=== PATIENT | female | born 1990 | race Caucasian/White ===

== ENCOUNTER 2024-07-15 12:27 | Outpatient (CLI) | payer MEDICAID, SELFPAY ==
[2024-07-15 12:54] VITALS: BP 145/90; PULSE 82
[2024-07-15 13:04] VITALS: BP 148/96; PULSE 87
[2024-07-15 13:24] VITALS: BP 148/96; PULSE 87; TEMP 36.6
[2024-07-15 13:36] VITALS: BP 146/90; PULSE 83
[2024-07-15 14:05] LABS: Abs Immature Grans 0.17 10^3/uL (0.0-0.06); Absolute Basophil Count 0.12 10^3/uL (0.0-0.2); Absolute Eosinophil Count 0.05 10^3/uL (0.0-0.7); Absolute Monocyte Count 0.78 10^3/uL (0.1-0.8); Basophils % 0.9 %; Eosinophils % 0.4 %; HCT 38.2 % (36.0-46.0); Immature Grans % 1.3 %; Lymphocytes % 12.1 %; MCH 29.5 pg (27.0-33.0); MCV 87 fL (80-95); Neutrophils % 79.3 %; Platelet Count 256 10^3/uL (130-400); RBC 4.41 10^6/uL (3.93-5.22); RDW 14.6 % (11.7-14.6); WBC 13.01 10^3/uL (4.4-10.8)
[2024-07-15 14:06] LABS: Absolute Lymphocyte Count 1.57 10^3/uL (1.2-3.4); Absolute Neutrophil Count 10.32 10^3/uL (1.2-6.7)
[2024-07-15 14:26] LABS: ALT 34 U/L (14-59); AST 36 U/L (15-37); Albumin 2.8 g/dL (3.4-5.0); Alkaline Phosphatase 210 U/L (46-116); Anion Gap 10.1 mmol/L (3-11); BUN 16 mg/dL (7-18); Bilirubin, Total 0.26 mg/dL (0.2-1.0); CO2 21.9 mmol/L (21.0-32.0); CREATININE 0.8 mg/dL (0.55-1.02); Calcium 9.7 mg/dL (8.5-10.1); Chloride 106 mmol/L (98-107); Estimated GFR 99.71 (mL/min/1.73m2); Glucose 84 mg/dL (74-106); Potassium 4.1 mmol/L (3.5-5.1); Sodium 138 mmol/L (136-145); Total Protein 7.2 g/dL (6.4-8.2)
[2024-07-15 14:45] VITALS: BP 133/81; PULSE 89
--- NOTE | 2024-07-16 08:07 | W.OBNST ---
Date of service: 07/16/24 Time of Service: 08:07 NST Evaluation Reason for NST Reasons for Nonstress Test: GESTATIONAL HYPERTENSION Gestational Age Gestational Age in Weeks and Days: 36 Weeks and 4Days Test and Monitor Explained Test/Monitor Explained: Test Explained, Monitor Explained and Patient Verbalized Understanding Vital Signs Blood Pressure: 148/96 Pulse: 87 Temperature: 97.9 F Urine Results Urine Protein: Negative Urine Ketones: Negative Urine Glucose: Negative Urine Blood: Negative NST Information Date on Monitor: 07/15/24 Time on Monitor: 12:42 Date off Monitor: 07/15/24 Time off Monitor: 13:12 Total Time on Monitor: 30 NST Interventions: Notify Provider Contraction Frequency: Occasional NST Evaluation Patient States Movement: Present FHR Baseline: 135 Variability: Moderate 6-25 bpm Accelerations: 15x15 Decelerations: None NST Results: Reactive Note Ultrasound Done: N/A. NST Note Note: Category 1, reactive NST NST Reviewed and Verified by: Gladys Choi
[2024-07-16 08:08] VITALS: BP 148/96; PULSE 87; TEMP 36.6
== END 2024-07-15 15:45 | disposition home or self-care (01) ==
LOC: BCD 12:37 → OBS 12:37
PROVIDERS: Obstetrics & Gynecology; Visit Provider Obstetrics & Gynecology Gynecology
DX: O13.3 Gestational [pregnancy-induced] hypertension without significant proteinuria, third trimester (principal); Z3A.36 36 weeks gestation of pregnancy
CPT/HCPCS: 59025; 80053; 86850; 86900; 86901; 85025; 87081

== ENCOUNTER 2024-07-17 07:29 | Outpatient (CLI) | payer MEDICAID, SELFPAY ==
[2024-07-17 10:13] VITALS: BP 127/92; PULSE 94; TEMP 36.5
[2024-07-17 10:22] VITALS: BP 127/92; PULSE 94
[2024-07-17 11:00] LABS: Abs Immature Grans 0.23 10^3/uL (0.0-0.06); Absolute Basophil Count 0.06 10^3/uL (0.0-0.2); Absolute Eosinophil Count 0.05 10^3/uL (0.0-0.7); Absolute Monocyte Count 0.77 10^3/uL (0.1-0.8); Basophils % 0.5 %; Eosinophils % 0.4 %; HCT 33.7 % (36.0-46.0); Lymphocytes % 11.7 %; MCH 30.5 pg (27.0-33.0); MCHC 35.6 % (32.0-36.0); MCV 86 fL (80-95); MPV 11.1 fL (8.0-11.0); Monocytes % 6.8 %; Neutrophils % 78.6 %; Platelet Count 245 10^3/uL (130-400); RBC 3.94 10^6/uL (3.93-5.22); RDW 14.6 % (11.7-14.6); RDW-SD 45.1 fL; WBC 11.32 10^3/uL (4.4-10.8)
[2024-07-17 11:02] LABS: Absolute Lymphocyte Count 1.32 10^3/uL (1.2-3.4)
[2024-07-17 11:06] VITALS: BP 123/85; PULSE 97
[2024-07-17 11:16] LABS: ALT 33 U/L (14-59); AST 31 U/L (15-37); Albumin 2.5 g/dL (3.4-5.0); Alkaline Phosphatase 199 U/L (46-116); Anion Gap 13.7 mmol/L (3-11); BUN 18 mg/dL (7-18); Bilirubin, Total 0.19 mg/dL (0.2-1.0); CO2 20.3 mmol/L (21.0-32.0); CREATININE 0.9 mg/dL (0.55-1.02); Calcium 9.2 mg/dL (8.5-10.1); Chloride 105 mmol/L (98-107); Estimated GFR 86.57 (mL/min/1.73m2); Glucose 117 mg/dL (74-106); Potassium 3.9 mmol/L (3.5-5.1); Sodium 139 mmol/L (136-145); Total Protein 6.5 g/dL (6.4-8.2)
[2024-07-17 19:10] LABS: PROTEIN 23.4 mg/dL (0.0-11.9)
[2024-07-17 19:14] LABS: TOTAL PROTEIN,URINE TIMED 374.4 mg/24hr (0.0-149.1); Total Volume 1600 ml
--- NOTE | 2024-08-26 10:50 | W.OBNST ---
Date of service: 08/26/24 Time of Service: 10:50 NST Evaluation Reason for NST Reasons for Nonstress Test: GESTATIONAL HYPERTENSION Gestational Age Gestational Age in Weeks and Days: 37 Weeks and 2Days Test and Monitor Explained Test/Monitor Explained: Test Explained, Monitor Explained and Patient Verbalized Understanding Vital Signs Blood Pressure: 127/92 Pulse: 94 Temperature: 97.7 F Urine Results Urine Protein: Negative Urine Ketones: Negative Urine Glucose: Negative Urine Blood: Negative NST Information Date on Monitor: 07/17/24 Time on Monitor: 10:10 Date off Monitor: 07/17/24 Time off Monitor: 11:32 Total Time on Monitor: 82 NST Interventions: PO Hydration and Notify Provider Contraction Frequency: Occasional NST Evaluation Patient States Movement: Present FHR Baseline: 140 Variability: Moderate 6-25 bpm Accelerations: 15x15 Decelerations: None NST Results: Reactive Note Ultrasound Done: N/A. NST Note Note: Reactive NST. BP stable. Pt will continue routine surveillence NST Reviewed and Verified by: Selma Nix
[2024-08-26 10:51] VITALS: BP 127/92; PULSE 94; TEMP 36.5
== END 2024-07-17 11:45 ==
LOC: BCD 07:30 → OBS 08:56
PROVIDERS: Obstetrics & Gynecology; Visit Provider Obstetrics & Gynecology Gynecology
DX: O13.3 Gestational [pregnancy-induced] hypertension without significant proteinuria, third trimester (principal); Z3A.37 37 weeks gestation of pregnancy
CPT/HCPCS: 59025; 36415; 80053; 86850; 86900; 86901; 81050; 84155; 85025

== ENCOUNTER 2024-07-19 19:04 | Inpatient (IN) | payer MEDICAID, SELFPAY ==
[2024-07-19 19:03] VITALS: BP 168/91; PULSE 94; RESP 17; TEMP 36.7
[2024-07-19 19:27] LABS: MCH 29.5 pg (27.0-33.0); MCHC 34.3 % (32.0-36.0); MCV 86 fL (80-95); MPV 11.2 fL (8.0-11.0); Platelet Count 241 10^3/uL (130-400); RBC 4.07 10^6/uL (3.93-5.22); RDW 14.7 % (11.7-14.6); RDW-SD 46.6 fL; WBC 13.63 10^3/uL (4.4-10.8)
[2024-07-19 19:40] VITALS: BP 169/80; PULSE 105
[2024-07-19 19:42] LABS: ALT 31 U/L (14-59); AST 36 U/L (15-37); Albumin 2.6 g/dL (3.4-5.0); Alkaline Phosphatase 216 U/L (46-116); Anion Gap 13.9 mmol/L (3-11); BUN 18 mg/dL (7-18); Bilirubin, Total 0.26 mg/dL (0.2-1.0); CO2 20.1 mmol/L (21.0-32.0); CREATININE 0.9 mg/dL (0.55-1.02); Calcium 9.1 mg/dL (8.5-10.1); Chloride 104 mmol/L (98-107); Estimated GFR 86.57 (mL/min/1.73m2); Glucose 135 mg/dL (74-106); Potassium 3.6 mmol/L (3.5-5.1); Sodium 138 mmol/L (136-145); Total Protein 6.7 g/dL (6.4-8.2)
[2024-07-19] MEDS: miSOPROStol 25 MCG TAB PO (20:11)
--- NOTE | 2024-07-19 21:34 | W.PM.OBHPL1 ---
Date of service: 07/19/24 Time of Service: 21:34 Assessment and Plan Assessment and plan (1) Preeclampsia: Status: Acute Assessment and plan: Pt admitted for cervical ripening with PO Misoprostol overnight. SVE in am and possible Oxytocin augmentation of labor. VSS and labs nl. Will discuss with CNM service tomorrow if they would like to participate in pt's labor and delivery. Qualifiers: Trimester: third trimester Qualified Code(s): O14.93 - Unspecified pre-eclampsia, third trimester OB-HPI Labor/Delivery History of Present Illness Reason for Visit: IUP@ 37wld EGA, Pre-eclampsia Chief Complaint: Signs/Symptoms Gestational HTN , Associated Signs and Symptoms of GestationalHTN: none other than elevated BP. YADIRA Calculator Estimated Delivery Date Method Current WG Current Estimate 08/08/24 LMP (Certain) 37w 1d Other Estimates 08/06/24 Ultrasound #1 37w 3d History of Present Expected Delivery Route/Plan Hoping for vaginal -collaborative care Specific Issues/Plan 1. Gestational hypertension 2. Late transfer from home [facility] [employer] [facility] 3. Elevated 1 hour glucose, 3. 3 hour glucose tolerance elevated=glucose intolerance 4. Hep C negative, rubella immune, HIV nonreactive, RPR nonreactive, hepatitis surface antigen negative, GC chlamydia negative, urine drug screen negative, TSH normal, O+ antibody screen negative Narrative: Pt is a 33yo G1 female currently 37w1d EGA with an YADIRA of 08/08/24 dated by a 9w1d u/s who presents for induction of labor secondary to preeclampsia by BP criteria and a total protein of 374mg/24 hrs on 07/17/24 24hr urine. CMP was normal. BP in office 146/90. She previously had care with home midwifery service and has transitioned to MD care. She and her partner Stas met with Dr. Choi on 07/15/24 to discuss her diagnosis and the plan of care. She agreed to admission on 07/19/24 with Misoprostol for cervical ripening and Oxytocin augmentation of labor. Informed Consent Informed Consent: Induction of Labor and Risk,Benefits,Alternatives Discussed Review of Systems Narrative: No changes in vision, no RUQ pain, N/V since last office visit on 07/15/24. All systems reviewed & are unremarkable except as noted in HPI and below PFSH All Active Problems (Updated 07/19/24 @ 21:59 by Selma Nix MD) Preeclampsia (Acute) Gestational hypertension (Acute) Elevated BP, Pr/Cr ratio 0.269 (Acute) EDC 08/09/2024 Home [employer] [facility] patient of Brionna Marcial Social History Smoking/Tobacco Use Status: Never Smoking risk assessment performed?: Yes History History 1 Para Hx # Term Pregnancies Multiple births Hx # Pregnancies Ectopic pregnancies AB induced Hx Number of Living Children 0 AB spontaneous Meds Allergies and Home Medications Allergies Allergy/AdvReac Type Severity Reaction Status Date / Time amoxicillin AdvReac Unknown Other (See Unverified 07/15/24 11:25 Comment) Penicillins AdvReac Unknown Other (See Unverified 07/15/24 11:25 Comment) Home Medications ?Medication ?Instructions ?Recorded ?Confirmed ?Type ferrous sulfate 324 mg (65 mg 324 mg PO DAILY #90 tabs 07/15/24 07/15/24 Rx iron) tablet,delayed release vitamins no.143-iron 29 1 tab PO DAILY #90 tabs 07/15/24 07/15/24 Rx mg-methyltetrahydrofolate 1 mg tablet Exam Physical Exam Vital signs: Temp Pulse Resp BP 98.1 F 105 H 17 169/80 H 07/19/24 19:03 07/19/24 19:40 07/19/24 19:03 07/19/24 19:40 Vital Signs Reviewed: Yes Narrative: unremarkable. Constitutional Constitutional: no acute distress Detailed Labor and Delivery Exam Dilation: 1 Effacement (%): 50 station: -1 Cervix position: mid Consistency: medium Koroma Score: Cervical Points Exam 0 1 2 3 Dilation Closed 1-2cm 3-4 cm 5-6cm Effacement 0-30% 40-50% 60-70% 80% Consistency Firm Medium Soft Station -3 -2 -1,0 +1,+2 Position Posterior Mid Anterior KOROMA Score(Cervical Ripeness Score): 5 Amniotic Membrane Status: Intact Monitor Mode: External Contraction Frequency(min): none Fetus A Heart Rate Baseline: 145 Monitor Accelerations: 15 X 15 Monitor Decelerations: None Variability: Moderate (6-25 BPM) Presentation: Cephalic Categories: Category I Est. Weight: 7 lb 4.404 oz HEENT Exam HEENT Exam: Normal Neck Exam Neck Exam: Normal Chest/Brest/Axilla Exam Chest Exam: Not Done Breast Exam Breast Exam: Not Done Respiratory Exam Respiratory Exam: Normal Cardiovascular Exam Cardiovascular Exam: Normal Abdominal Exam Abdominal Exam: Normal Rectal Exam Rectal Exam: Not Done Exam Exam: Normal Extremities Exam Extremities Exam: Normal Back/Spine/Pelvis Exam Back Exam: Normal Skin Exam Skin Exam: Normal Neurological Exam Neurological Exam: Normal Psychiatric Exam Psychiatric Exam: Normal Results Results Group Beta Strep: Negative Blood Type: O+ Abnormal Lab Findings: Abnormal Labs 07/19/24 19:13 WBC 13.63 H Hct 35.0 L RDW 14.7 H MPV 11.2 H Carbon Dioxide 20.1 L Anion Gap 13.9 H Glucose 135 H Alkaline Phosphatase 216 H Albumin 2.6 L Risk Assessment Risk for Shoulder Dystocia Increased Risk?: No Risks Reviewed Risks Reviewed Upon Admission: Yes
[2024-07-20] VITALS (11 sets, daily range): BP systolic 135–184; BP diastolic 70–100; PULSE 77–92; RESP 18; TEMP 36.6; O2SAT 99
[2024-07-20] MEDS: miSOPROStol 25 MCG TAB PO ×2 (00:25→04:30)
--- NOTE | 2024-07-20 07:44 | PGE_ITS ---
Date of service: 07/20/24 Time of Service: 07:44 Informed Consent Informed Consent: Augmentation of Labor, Induction of Labor and Risk,Benefits,Alternatives Discussed Pelvic Exam Dilation: 1.5 Effacement (%): 75 station: -1 Cervix Position: mid Consistency: soft Vaginal Exam Presentation: Cephalic Contractions Monitor Mode: External Contraction Frequency(min): q3-4 Contraction Duration(sec): 40 Intensity: Mild Fetus A Monitor: External (US) Heart Rate Baseline: 145 Presentation: Vertex Variability: Moderate (6-25 BPM) Categories: Category I FHR Rhythm: Regular Characteristics: Normal Accelerations: 15 X 15 Decelerations: None Amniotic Membrane Status: Intact Assessment and Plan Assessment and plan (1) Preeclampsia: Status: Acute Assessment and plan: BP remains labile. No H/A or subjective sx of preeclampisa Qualifiers: Trimester: third trimester Qualified Code(s): O14.93 - Unspecified pre- eclampsia, third trimester (2) Encounter for induction of labor: Status: Acute Assessment and plan: Cervical ripening during the night. Oxytocin augmentation of labor begining this morning. Objective Abnormal lab results 07/19/24 Range/Units 19:13 WBC 13.63 H (4.4-10.8) 10^3/uL Hct 35.0 L (36.0-46.0) % RDW 14.7 H (11.7-14.6) % MPV 11.2 H (8.0-11.0) fL Carbon Dioxide 20.1 L (21.0-32.0) mmol/L Anion Gap 13.9 H (3-11) mmol/L Glucose 135 H (74-106) mg/dL Alkaline Phosphatase 216 H (46-116) U/L Albumin 2.6 L (3.4-5.0) g/dL Temp Pulse Resp BP 98.1 F 90 17 146/95 H 07/19/24 19:03 07/20/24 07:31 07/19/24 19:03 07/20/24 07:31 Laboratory Results WBC 13.63 10^3/uL (4.4-10.8) H 07/19/24 19:13 RBC 4.07 10^6/uL (3.93-5.22) 07/19/24 19:13 Hgb 12.0 g/dL (11.2-15.7) 11/03/24 19:13 Hct 35.0 % (36.0-46.0) L 07/19/24 19:13 MCV 86 fL (80-95) 07/19/24 19:13 MCH 29.5 pg (27.0-33.0) 07/19/24 19:13 MCHC 34.3 % (32.0-36.0) 07/19/24 19:13 RDW 14.7 % (11.7-14.6) H 07/19/24 19:13 Plt Count 241 10^3/uL (130-400) 07/19/24 19:13 MPV 11.2 fL (8.0-11.0) H 07/19/24 19:13 Sodium 138 mmol/L (136-145) 07/19/24 19:13 Potassium 3.6 mmol/L (3.5-5.1) 07/19/24 19:13 Chloride 104 mmol/L (98-107) 07/19/24 19:13 Carbon Dioxide 20.1 mmol/L (21.0-32.0) L 07/19/24 19:13 Anion Gap 13.9 mmol/L (3-11) H 07/19/24 19:13 BUN 18 mg/dL (7-18) 07/19/24 19:13 Creatinine 0.9 mg/dL (0.55-1.02) 07/19/24 19:13 Est GFR (CKD-EPI 2020) 86.57 (mL/min/1.73m2) 07/19/24 19:13 Glucose 135 mg/dL (74-106) H 07/19/24 19:13 Calcium 9.1 mg/dL (8.5-10.1) 07/19/24 19:13 Total Bilirubin 0.26 mg/dL (0.2-1.0) 07/19/24 19:13 AST 36 U/L (15-37) 07/19/24 19:13 ALT 31 U/L (14-59) 07/19/24 19:13 Alkaline Phosphatase 216 U/L (46-116) H 07/19/24 19:13 Total Protein 6.7 g/dL (6.4-8.2) 07/19/24 19:13 Albumin 2.6 g/dL (3.4-5.0) L 07/19/24 19:13 ABO/Rh O Positive 07/19/24 19:13 Antibody Screen NEGATIVE 07/19/24 19:13 Vital Signs Reviewed: Yes Objective Narrative Objective Narrative: comfortable. agreeable to augmentation with Oxytocin Subjective Patient Reports: No new Complaints Interval history since last seen: HD 1. s/p Misoprostol 25mg PO during night. Final dose due at 0800. Pt experienced mildcontractions during night. Results Hemoglobin/Hematocrit: Hgb 12.0 g/dL (11.2-15.7) 07/19/24 19:13 Hct 35.0 % (36.0-46.0) L 07/19/24 19:13 Abnormal Lab Findings: Abnormal Labs 07/19/24 19:13 WBC 13.63 H Hct 35.0 L RDW 14.7 H MPV 11.2 H Carbon Dioxide 20.1 L Anion Gap 13.9 H Glucose 135 H Alkaline Phosphatase 216 H Albumin 2.6 L
[2024-07-20 08:29] LABS: HCT 37.6 % (36.0-46.0); HGB 12.7 g/dL (11.2-15.7); MCH 29.3 pg (27.0-33.0); MCHC 33.8 % (32.0-36.0); MCV 87 fL (80-95); Platelet Count 254 10^3/uL (130-400); RBC 4.33 10^6/uL (3.93-5.22); RDW 14.6 % (11.7-14.6); RDW-SD 46.3 fL; WBC 12.88 10^3/uL (4.4-10.8)
--- NOTE | 2024-07-20 09:24 | PGE_ITS ---
Date of service: 07/20/24 Time of Service: 09:25 Informed Consent Informed Consent: Augmentation of Labor, Induction of Labor and Risk,Benefits,Alternatives Discussed Assessment and Plan Assessment and plan (1) : Status: Acute (2) Preeclampsia: Status: Acute Assessment and plan: Preeclampsia at 37 weeks. Labor induction. Received misoprostol. Will augment as needed. Group B strep is negative. All questions answered. Qualifiers: Trimester: third trimester Qualified Code(s): O14.93 - Unspecified pre- eclampsia, third trimester (3) Encounter for induction of labor: Status: Acute Objective Abnormal lab results 07/19/24 07/20/24 Range/Units 19:13 08:10 WBC 13.63 H 12.88 H (4.4-10.8) 10^3/uL Hct 35.0 L (36.0-46.0) % RDW 14.7 H (11.7-14.6) % MPV 11.2 H (8.0-11.0) fL Carbon Dioxide 20.1 L (21.0-32.0) mmol/L Anion Gap 13.9 H (3-11) mmol/L Glucose 135 H (74-106) mg/dL Alkaline Phosphatase 216 H (46-116) U/L Albumin 2.6 L (3.4-5.0) g/dL Temp Pulse Resp BP 98.1 F 90 17 146/95 H 07/19/24 19:03 07/20/24 07:31 07/19/24 19:03 07/20/24 07:31 Laboratory Results WBC 12.88 10^3/uL (4.4-10.8) H 07/20/24 08:10 RBC 4.33 10^6/uL (3.93-5.22) 07/20/24 08:10 Hgb 12.7 g/dL (11.2-15.7) 07/20/24 08:10 Hct 37.6 % (36.0-46.0) 07/20/24 08:10 MCV 87 fL (80-95) 07/20/24 08:10 MCH 29.3 pg (27.0-33.0) 07/20/24 08:10 MCHC 33.8 % (32.0-36.0) 07/20/24 08:10 RDW 14.6 % (11.7-14.6) 07/20/24 08:10 Plt Count 254 10^3/uL (130-400) 07/20/24 08:10 MPV 11.0 fL (8.0-11.0) 07/20/24 08:10 Sodium 138 mmol/L (136-145) 07/19/24 19:13 Potassium 3.6 mmol/L (3.5-5.1) 07/19/24 19:13 Chloride 104 mmol/L (98-107) 07/19/24 19:13 Carbon Dioxide 20.1 mmol/L (21.0-32.0) L 07/19/24 19:13 Anion Gap 13.9 mmol/L (3-11) H 07/19/24 19:13 BUN 18 mg/dL (7-18) 07/19/24 19:13 Creatinine 0.9 mg/dL (0.55-1.02) 07/19/24 19:13 Est GFR (CKD-EPI 2020) 86.57 (mL/min/1.73m2) 07/19/24 19:13 Glucose 135 mg/dL (74-106) H 07/19/24 19:13 Calcium 9.1 mg/dL (8.5-10.1) 07/19/24 19:13 Total Bilirubin 0.26 mg/dL (0.2-1.0) 07/19/24 19:13 AST 36 U/L (15-37) 07/19/24 19:13 ALT 31 U/L (14-59) 07/19/24 19:13 Alkaline Phosphatase 216 U/L (46-116) H 07/19/24 19:13 Total Protein 6.7 g/dL (6.4-8.2) 07/19/24 19:13 Albumin 2.6 g/dL (3.4-5.0) L 07/19/24 19:13 ABO/Rh O Positive 07/19/24 19:13 Antibody Screen NEGATIVE 07/19/24 19:13 Subjective Interval history since last seen: Patient seen. Discussion regarding labor induction. Good change in her cervical exam from her misoprostol per Dr. Nix. Will begin Pitocin augmentation when patient is ready to start that process. In the interval, she will ambulate, position change. May recheck cervix. All questions answered. Results Hemoglobin/Hematocrit: Hgb 12.7 g/dL (11.2-15.7) 07/20/24 08:10 Hct 37.6 % (36.0-46.0) 07/20/24 08:10 Abnormal Lab Findings: Abnormal Labs 07/19/24 07/20/24 19:13 08:10 WBC 13.63 H 12.88 H Hct 35.0 L RDW 14.7 H MPV 11.2 H Carbon Dioxide 20.1 L Anion Gap 13.9 H Glucose 135 H Alkaline Phosphatase 216 H Albumin 2.6 L
[2024-07-20] MEDS: Lactated Ringers 1,000 ML 125 ML IV ×2 (10:15→18:22)
[2024-07-20] MEDS: Oxytocin/Normal Saline 30 UNIT/500 ML BAG 2 UNITS IV (10:19)
--- NOTE | 2024-07-20 12:46 | PGE_ITS ---
Date of service: 07/20/24 Time of Service: 12:46 Informed Consent Informed Consent: Augmentation of Labor, Induction of Labor and Risk,Benefits,Alternatives Discussed Assessment and Plan Assessment and plan (1) : Status: Acute Assessment and plan: Labor induction at 37 weeks for preeclampsia. Received cervical ripening, now with Pitocin augmentation. Anticipate vaginal (2) Preeclampsia: Status: Acute Qualifiers: Trimester: third trimester Qualified Code(s): O14.93 - Unspecified pre- eclampsia, third trimester Objective Abnormal lab results 07/19/24 07/20/24 Range/Units 19:13 08:10 WBC 13.63 H 12.88 H (4.4-10.8) 10^3/uL Hct 35.0 L (36.0-46.0) % RDW 14.7 H (11.7-14.6) % MPV 11.2 H (8.0-11.0) fL Carbon Dioxide 20.1 L (21.0-32.0) mmol/L Anion Gap 13.9 H (3-11) mmol/L Glucose 135 H (74-106) mg/dL Alkaline Phosphatase 216 H (46-116) U/L Albumin 2.6 L (3.4-5.0) g/dL Temp Pulse Resp BP 98.1 F 90 17 135/93 H 07/19/24 19:03 07/20/24 12:03 07/19/24 19:03 07/20/24 12:03 Laboratory Results WBC 12.88 10^3/uL (4.4-10.8) H 07/20/24 08:10 RBC 4.33 10^6/uL (3.93-5.22) 07/20/24 08:10 Hgb 12.7 g/dL (11.2-15.7) 07/20/24 08:10 Hct 37.6 % (36.0-46.0) 07/20/24 08:10 MCV 87 fL (80-95) 07/20/24 08:10 MCH 29.3 pg (27.0-33.0) 07/20/24 08:10 MCHC 33.8 % (32.0-36.0) 07/20/24 08:10 RDW 14.6 % (11.7-14.6) 07/20/24 08:10 Plt Count 254 10^3/uL (130-400) 07/20/24 08:10 MPV 11.0 fL (8.0-11.0) 07/20/24 08:10 Sodium 138 mmol/L (136-145) 07/19/24 19:13 Potassium 3.6 mmol/L (3.5-5.1) 07/19/24 19:13 Chloride 104 mmol/L (98-107) 07/19/24 19:13 Carbon Dioxide 20.1 mmol/L (21.0-32.0) L 07/19/24 19:13 Anion Gap 13.9 mmol/L (3-11) H 07/19/24 19:13 BUN 18 mg/dL (7-18) 07/19/24 19:13 Creatinine 0.9 mg/dL (0.55-1.02) 07/19/24 19:13 Est GFR (CKD-EPI 2020) 86.57 (mL/min/1.73m2) 07/19/24 19:13 Glucose 135 mg/dL (74-106) H 07/19/24 19:13 Calcium 9.1 mg/dL (8.5-10.1) 07/19/24 19:13 Total Bilirubin 0.26 mg/dL (0.2-1.0) 07/19/24 19:13 AST 36 U/L (15-37) 07/19/24 19:13 ALT 31 U/L (14-59) 07/19/24 19:13 Alkaline Phosphatase 216 U/L (46-116) H 07/19/24 19:13 Total Protein 6.7 g/dL (6.4-8.2) 07/19/24 19:13 Albumin 2.6 g/dL (3.4-5.0) L 07/19/24 19:13 ABO/Rh O Positive 07/19/24 19:13 Antibody Screen NEGATIVE 07/19/24 19:13 Subjective Interval history since last seen: Patient seen. Blood pressures are stable. Nidhi every 2 to 3 minutes. Pitocin augmentation has begun. Patient more uncomfortable with contractions. Desiring to ambulate, and rest intermittently. All questions answered. Results Hemoglobin/Hematocrit: Hgb 12.7 g/dL (11.2-15.7) 07/20/24 08:10 Hct 37.6 % (36.0-46.0) 07/20/24 08:10 Abnormal Lab Findings: Abnormal Labs 07/19/24 07/20/24 19:13 08:10 WBC 13.63 H 12.88 H Hct 35.0 L RDW 14.7 H MPV 11.2 H Carbon Dioxide 20.1 L Anion Gap 13.9 H Glucose 135 H Alkaline Phosphatase 216 H Albumin 2.6 L
--- NOTE | 2024-07-20 17:17 | PGE_ITS ---
Date of service: 07/20/24 Time of Service: 17:18 Informed Consent Informed Consent: Augmentation of Labor, Induction of Labor and Risk,Benefits,Alternatives Discussed Assessment and Plan Assessment and plan (1) Preeclampsia: Status: Acute Assessment and plan: Continue augmentation of labor. Pitocin to be increased. Will rupture when warranted. Category 1 heart rate tracing. Maternal blood pressures are stable. Qualifiers: Trimester: third trimester Qualified Code(s): O14.93 - Unspecified pre- eclampsia, third trimester (2) Encounter for induction of labor: Status: Acute (3) : Status: Acute Objective Abnormal lab results 07/19/24 07/20/24 Range/Units 19:13 08:10 WBC 13.63 H 12.88 H (4.4-10.8) 10^3/uL Hct 35.0 L (36.0-46.0) % RDW 14.7 H (11.7-14.6) % MPV 11.2 H (8.0-11.0) fL Carbon Dioxide 20.1 L (21.0-32.0) mmol/L Anion Gap 13.9 H (3-11) mmol/L Glucose 135 H (74-106) mg/dL Alkaline Phosphatase 216 H (46-116) U/L Albumin 2.6 L (3.4-5.0) g/dL Temp Pulse Resp BP 98.1 F 86 17 136/93 H 07/19/24 19:03 07/20/24 16:48 07/19/24 19:03 07/20/24 16:48 Laboratory Results WBC 12.88 10^3/uL (4.4-10.8) H 07/20/24 08:10 RBC 4.33 10^6/uL (3.93-5.22) 07/20/24 08:10 Hgb 12.7 g/dL (11.2-15.7) 07/20/24 08:10 Hct 37.6 % (36.0-46.0) 07/20/24 08:10 MCV 87 fL (80-95) 07/20/24 08:10 MCH 29.3 pg (27.0-33.0) 07/20/24 08:10 MCHC 33.8 % (32.0-36.0) 07/20/24 08:10 RDW 14.6 % (11.7-14.6) 07/20/24 08:10 Plt Count 254 10^3/uL (130-400) 07/20/24 08:10 MPV 11.0 fL (8.0-11.0) 07/20/24 08:10 Sodium 138 mmol/L (136-145) 07/19/24 19:13 Potassium 3.6 mmol/L (3.5-5.1) 07/19/24 19:13 Chloride 104 mmol/L (98-107) 07/19/24 19:13 Carbon Dioxide 20.1 mmol/L (21.0-32.0) L 07/19/24 19:13 Anion Gap 13.9 mmol/L (3-11) H 07/19/24 19:13 BUN 18 mg/dL (7-18) 07/19/24 19:13 Creatinine 0.9 mg/dL (0.55-1.02) 07/19/24 19:13 Est GFR (CKD-EPI 2020) 86.57 (mL/min/1.73m2) 07/19/24 19:13 Glucose 135 mg/dL (74-106) H 07/19/24 19:13 Calcium 9.1 mg/dL (8.5-10.1) 07/19/24 19:13 Total Bilirubin 0.26 mg/dL (0.2-1.0) 07/19/24 19:13 AST 36 U/L (15-37) 07/19/24 19:13 ALT 31 U/L (14-59) 07/19/24 19:13 Alkaline Phosphatase 216 U/L (46-116) H 07/19/24 19:13 Total Protein 6.7 g/dL (6.4-8.2) 07/19/24 19:13 Albumin 2.6 g/dL (3.4-5.0) L 07/19/24 19:13 ABO/Rh O Positive 07/19/24 19:13 Antibody Screen NEGATIVE 07/19/24 19:13 Subjective Interval history since last seen: Patient seen and examined this evening. All questions answered. Contractions are anywhere from 2 to 5 minutes. heart rate tracing 130s moderate variability, appropriate accelerations, category 1 strip. Cervical exam cervix is 4 cm 70% -2 station with a bulging bag of water. We discussed increasing Pitocin versus artificial rupture. At this point, she and her partner request increasing her Pitocin and reevaluating for cervical change. All questions answered. Results Hemoglobin/Hematocrit: Hgb 12.7 g/dL (11.2-15.7) 07/20/24 08:10 Hct 37.6 % (36.0-46.0) 07/20/24 08:10 Abnormal Lab Findings: Abnormal Labs 07/19/24 07/20/24 19:13 08:10 WBC 13.63 H 12.88 H Hct 35.0 L RDW 14.7 H MPV 11.2 H Carbon Dioxide 20.1 L Anion Gap 13.9 H Glucose 135 H Alkaline Phosphatase 216 H Albumin 2.6 L
--- NOTE | 2024-07-20 20:19 | PGE_ITS ---
Date of service: 07/20/24 Time of Service: 20:19 Informed Consent Informed Consent: Augmentation of Labor, Induction of Labor and Risk,Benefits,Alternatives Discussed Pelvic Exam Dilation: 4 Effacement (%): 9 station: -1 Contractions Contraction Frequency(min): 3 Fetus A Heart Rate Baseline: 140 Presentation: Vertex Amniotic Membrane Status: Ruptured Rupture Method: Artifical Amniotic Fluid: Clear Date of Membrane Rupture: 07/20/24 Time of Membrane Rupture: 20:21 Assessment and Plan Assessment and plan (1) : Status: Acute Assessment and plan: Labor induction for preeclampsia at 37 weeks. Artificial rupture membranes for clear fluid. Category 1 heart rate tracing. Maternal blood pressure somewhat labile. Will recheck and treat if indicated. Anticipate vaginal . All questions answered. (2) Preeclampsia: Status: Acute Qualifiers: Trimester: third trimester Qualified Code(s): O14.93 - Unspecified pre- eclampsia, third trimester Objective Abnormal lab results 07/20/24 Range/Units 08:10 WBC 12.88 H (4.4-10.8) 10^3/uL Temp Pulse Resp BP 98.1 F 83 17 159/96 H 07/19/24 19:03 07/20/24 20:00 07/19/24 19:03 07/20/24 20:00 Laboratory Results WBC 12.88 10^3/uL (4.4-10.8) H 07/20/24 08:10 RBC 4.33 10^6/uL (3.93-5.22) 07/20/24 08:10 Hgb 12.7 g/dL (11.2-15.7) 07/20/24 08:10 Hct 37.6 % (36.0-46.0) 07/20/24 08:10 MCV 87 fL (80-95) 07/20/24 08:10 MCH 29.3 pg (27.0-33.0) 07/20/24 08:10 MCHC 33.8 % (32.0-36.0) 07/20/24 08:10 RDW 14.6 % (11.7-14.6) 07/20/24 08:10 Plt Count 254 10^3/uL (130-400) 07/20/24 08:10 MPV 11.0 fL (8.0-11.0) 07/20/24 08:10 Sodium 138 mmol/L (136-145) 07/19/24 19:13 Potassium 3.6 mmol/L (3.5-5.1) 07/19/24 19:13 Chloride 104 mmol/L (98-107) 07/19/24 19:13 Carbon Dioxide 20.1 mmol/L (21.0-32.0) L 07/19/24 19:13 Anion Gap 13.9 mmol/L (3-11) H 07/19/24 19:13 BUN 18 mg/dL (7-18) 07/19/24 19:13 Creatinine 0.9 mg/dL (0.55-1.02) 07/19/24 19:13 Est GFR (CKD-EPI 2020) 86.57 (mL/min/1.73m2) 07/19/24 19:13 Glucose 135 mg/dL (74-106) H 07/19/24 19:13 Calcium 9.1 mg/dL (8.5-10.1) 07/19/24 19:13 Total Bilirubin 0.26 mg/dL (0.2-1.0) 07/19/24 19:13 AST 36 U/L (15-37) 07/19/24 19:13 ALT 31 U/L (14-59) 07/19/24 19:13 Alkaline Phosphatase 216 U/L (46-116) H 07/19/24 19:13 Total Protein 6.7 g/dL (6.4-8.2) 07/19/24 19:13 Albumin 2.6 g/dL (3.4-5.0) L 07/19/24 19:13 ABO/Rh O Positive 07/19/24 19:13 Antibody Screen NEGATIVE 07/19/24 19:13 Subjective Interval history since last seen: Patient seen and examined. Overall doing well. Slight elevation in her blood pressure most recently. No symptoms of headache, visual changes or epigastric pain. Some increasing discomfort with uterine contractions. Desires artificial rupture of membranes. Cervical exam reveals cervix is 4 cm 90% bulging bag of water with a vertex at a -1 station. Artificial rupture of membranes for clear fluid. Patient tolerated rupture without difficulty. Category 1 heart rate tracing. Anticipate vaginal Results Hemoglobin/Hematocrit: Hgb 12.7 g/dL (11.2-15.7) 07/20/24 08:10 Hct 37.6 % (36.0-46.0) 07/20/24 08:10 Abnormal Lab Findings: Abnormal Labs 07/19/24 07/20/24 19:13 08:10 WBC 13.63 H 12.88 H Hct 35.0 L RDW 14.7 H MPV 11.2 H Carbon Dioxide 20.1 L Anion Gap 13.9 H Glucose 135 H Alkaline Phosphatase 216 H Albumin 2.6 L
[2024-07-20] MEDS: Ondansetron 4 MG/2 ML VIAL IVP (21:08)
--- NOTE | 2024-07-20 22:36 | PGE_ITS ---
Date of service: 07/20/24 Time of Service: 22:36 Informed Consent Informed Consent: Augmentation of Labor, Induction of Labor and Risk,Benefits,Alternatives Discussed Pelvic Exam Dilation: 6 Effacement (%): 100 station: 0 Position: OA Cervix Position: mid Consistency: soft Contractions Monitor Mode: External Contraction Frequency(min): 3 Contraction Duration(sec): 60 Intensity: Strong Fetus A Heart Rate Baseline: 140 Variability: Moderate (6-25 BPM) FHR Rhythm: Regular Assessment and Plan Assessment and plan (1) Preeclampsia: Status: Acute Assessment and plan: Induction of labor for preeclampsia at 37 weeks. Pain control as needed. Qualifiers: Trimester: third trimester Qualified Code(s): O14.93 - Unspecified pre- eclampsia, third trimester (2) Encounter for induction of labor: Status: Acute Objective Abnormal lab results 07/20/24 Range/Units 08:10 WBC 12.88 H (4.4-10.8) 10^3/uL Temp Pulse Resp BP 98.1 F 83 17 159/96 H 07/19/24 19:03 07/20/24 20:00 07/19/24 19:03 07/20/24 20:00 Laboratory Results WBC 12.88 10^3/uL (4.4-10.8) H 07/20/24 08:10 RBC 4.33 10^6/uL (3.93-5.22) 07/20/24 08:10 Hgb 12.7 g/dL (11.2-15.7) 07/20/24 08:10 Hct 37.6 % (36.0-46.0) 07/20/24 08:10 MCV 87 fL (80-95) 07/20/24 08:10 MCH 29.3 pg (27.0-33.0) 07/20/24 08:10 MCHC 33.8 % (32.0-36.0) 07/20/24 08:10 RDW 14.6 % (11.7-14.6) 07/20/24 08:10 Plt Count 254 10^3/uL (130-400) 07/20/24 08:10 MPV 11.0 fL (8.0-11.0) 07/20/24 08:10 Sodium 138 mmol/L (136-145) 07/19/24 19:13 Potassium 3.6 mmol/L (3.5-5.1) 07/19/24 19:13 Chloride 104 mmol/L (98-107) 07/19/24 19:13 Carbon Dioxide 20.1 mmol/L (21.0-32.0) L 07/19/24 19:13 Anion Gap 13.9 mmol/L (3-11) H 07/19/24 19:13 BUN 18 mg/dL (7-18) 07/19/24 19:13 Creatinine 0.9 mg/dL (0.55-1.02) 07/19/24 19:13 Est GFR (CKD-EPI 2020) 86.57 (mL/min/1.73m2) 07/19/24 19:13 Glucose 135 mg/dL (74-106) H 07/19/24 19:13 Calcium 9.1 mg/dL (8.5-10.1) 07/19/24 19:13 Total Bilirubin 0.26 mg/dL (0.2-1.0) 07/19/24 19:13 AST 36 U/L (15-37) 07/19/24 19:13 ALT 31 U/L (14-59) 07/19/24 19:13 Alkaline Phosphatase 216 U/L (46-116) H 07/19/24 19:13 Total Protein 6.7 g/dL (6.4-8.2) 07/19/24 19:13 Albumin 2.6 g/dL (3.4-5.0) L 07/19/24 19:13 ABO/Rh O Positive 07/19/24 19:13 Antibody Screen NEGATIVE 07/19/24 19:13 Subjective Interval history since last seen: Patient seen. Far more uncomfortable with contractions which are now every 3 minutes. Category 1 heart rate tracing. Desiring pain control. Offered nitrous versus epidural. She will use nitrous and position change for now. Results Hemoglobin/Hematocrit: Hgb 12.7 g/dL (11.2-15.7) 07/20/24 08:10 Hct 37.6 % (36.0-46.0) 07/20/24 08:10 Abnormal Lab Findings: Abnormal Labs 07/19/24 07/20/24 19:13 08:10 WBC 13.63 H 12.88 H Hct 35.0 L RDW 14.7 H MPV 11.2 H Carbon Dioxide 20.1 L Anion Gap 13.9 H Glucose 135 H Alkaline Phosphatase 216 H Albumin 2.6 L
--- NOTE | 2024-07-20 23:18 | W.PM.OBNL1 ---
Date of service: 07/20/24 Time of Service: 23:18 Informed Consent Informed Consent: Augmentation of Labor, Induction of Labor and Risk,Benefits,Alternatives Discussed Objective Abnormal lab results 07/20/24 Range/Units 08:10 WBC 12.88 H (4.4-10.8) 10^3/uL Temp Pulse Resp BP Pulse Ox 97.9 F 92 H 18 150/100 H 99 07/20/24 22:00 07/20/24 22:00 07/20/24 22:00 07/20/24 22:00 07/20/24 22:00 Laboratory Results WBC 12.88 10^3/uL (4.4-10.8) H 07/20/24 08:10 RBC 4.33 10^6/uL (3.93-5.22) 07/20/24 08:10 Hgb 12.7 g/dL (11.2-15.7) 07/20/24 08:10 Hct 37.6 % (36.0-46.0) 07/20/24 08:10 MCV 87 fL (80-95) 07/20/24 08:10 MCH 29.3 pg (27.0-33.0) 07/20/24 08:10 MCHC 33.8 % (32.0-36.0) 07/20/24 08:10 RDW 14.6 % (11.7-14.6) 07/20/24 08:10 Plt Count 254 10^3/uL (130-400) 07/20/24 08:10 MPV 11.0 fL (8.0-11.0) 07/20/24 08:10 Sodium 138 mmol/L (136-145) 07/19/24 19:13 Potassium 3.6 mmol/L (3.5-5.1) 07/19/24 19:13 Chloride 104 mmol/L (98-107) 07/19/24 19:13 Carbon Dioxide 20.1 mmol/L (21.0-32.0) L 07/19/24 19:13 Anion Gap 13.9 mmol/L (3-11) H 07/19/24 19:13 BUN 18 mg/dL (7-18) 07/19/24 19:13 Creatinine 0.9 mg/dL (0.55-1.02) 07/19/24 19:13 Est GFR (CKD-EPI 2020) 86.57 (mL/min/1.73m2) 07/19/24 19:13 Glucose 135 mg/dL (74-106) H 07/19/24 19:13 Calcium 9.1 mg/dL (8.5-10.1) 07/19/24 19:13 Total Bilirubin 0.26 mg/dL (0.2-1.0) 07/19/24 19:13 AST 36 U/L (15-37) 07/19/24 19:13 ALT 31 U/L (14-59) 07/19/24 19:13 Alkaline Phosphatase 216 U/L (46-116) H 07/19/24 19:13 Total Protein 6.7 g/dL (6.4-8.2) 07/19/24 19:13 Albumin 2.6 g/dL (3.4-5.0) L 07/19/24 19:13 ABO/Rh O Positive 07/19/24 19:13 Antibody Screen NEGATIVE 07/19/24 19:13 Subjective Interval history since last seen: Patient seen. More uncomfortable with contractions. Category 1 heart rate tracing. Patient using nitrous oxide. Would like additional pain relief. Will call anesthesia for epidural placement. Results Hemoglobin/Hematocrit: Hgb 12.7 g/dL (11.2-15.7) 07/20/24 08:10 Hct 37.6 % (36.0-46.0) 07/20/24 08:10 Abnormal Lab Findings: Abnormal Labs 07/19/24 07/20/24 19:13 08:10 WBC 13.63 H 12.88 H Hct 35.0 L RDW 14.7 H MPV 11.2 H Carbon Dioxide 20.1 L Anion Gap 13.9 H Glucose 135 H Alkaline Phosphatase 216 H Albumin 2.6 L
[2024-07-21] VITALS (143 sets, daily range): BP systolic 99–159; BP diastolic 55–101; PULSE 58–109; RESP 15–18; TEMP 36.7–36.8; O2SAT 93–100; BMI 27.0
[2024-07-21] MEDS: FentaNYL/ROPIvacaine 2 mcg/ml and 0.1% 200 ML CADD Cassette EP
--- NOTE | 2024-07-21 00:46 | W.ANESNEU ---
Epidural/Spinal Catheter Date Performed: 07/21/24 Procedure Start: 00:15 Procedure Stop: 00:47 Requesting Provider: Yovany Davis Procedure Location: Obstetrics Reason Performed: Labor Epidural Standard Monitors Applied: Blood Pressure, SpO2 and See EMR for corresponding vital signs Patient Position: Sitting Sedation Given (Indicate Dose Given): No Sedation given Patient Mental Status: Awake Sterility: Hand Hygiene, Surgical Cap, Surgical Mask, Sterile Gloves and Chlorhexidine Procedure Location: L3-L4 Interspace Epidural Needle: Tuohy 18 Gauge Needle Length: 3.5 Inch Needle Approach: Midline Epidural Procedure: Skin Prepped, Sterile Drape Placed, 1% Lidocaine to skin and subcutaneous tissue with 25G needle, Tuohy Needle placed, GUSTAVO to Saline Used, Epidural Catheter Placed, Negative Heme, Negative CSF Flow and Tuohy Needle Removed Catheter Placed?: Catheter Placed Test Dose (Indicate Dose Given): 3ml 1.5% Lidocaine with 1:200K Epinephrine Given and Negative Test Dose Loss of Resistance Depth (cm): 4 Catheter depth at skin (cm): 10 Dressing: [place]aview Dressing Placed, Mastisol Used and Dressing reinforced with Tape Epidural Provider Bolus (Indicate Dose Given): Total bolus dose given in 3-5 ml divided doses (10ml total) Additives (Indicate Dose Given ): None Infusion Medication: Medication Infusion Began Medication Infusion: Ropivacaine 0.1% with Fentanyl 2mcg/ml Maintenance Infusion Rate (ml/hour): 10 PCEA Bolus Dose (ml): 5 Post Procedure Pain score (0-10): 2 Block Level: N/A Paresthesia: None Ultrasound: Not Used Number of Attempts (See previous attempts in note section): 1 Procedure Tolerated: No Complications and Patient tolerated well Procedure Outcome: Successful Procedure Comment:: Placement without difficulty while pt. using intermittent nitrous. Negative test dose. 5ml x2 given from pump with relief of sharp discomfort, now just pressure. Educated on PCEA use and questions answered. Performed By: Yovany Davis
--- NOTE | 2024-07-21 00:51 | W.ANESPRE ---
General Info Date of Service Date Performed: 07/21/24 Height: 5 ft Weight: 62.823 kg Body Mass Index (BMI): 27.0 Meds Allergies and Home Medications Allergies Allergy/AdvReac Type Severity Reaction Status Date / Time amoxicillin AdvReac Unknown Other (See Unverified 07/15/24 11:25 Comment) Penicillins AdvReac Unknown Other (See Unverified 07/15/24 11:25 Comment) Home Medication ?Medication ?Instructions ?Recorded ferrous sulfate 324 mg (65 mg 324 mg PO DAILY #90 tabs 07/15/24 iron) tablet,delayed release vitamins no.143-iron 29 1 tab PO DAILY #90 tabs 07/15/24 mg-methyltetrahydrofolate 1 mg tablet Current Visit Medications: Current Medications Generic Name Dose Route Start Last Admin Trade Name Freq PRN Reason Stop Dose Admin Ephedrine Sulfate 5 mg 07/21/24 00:46 Ephedrine 50 Mg/Ml Vial IVP DIRECTED PRN Fentanyl/Ropivacaine 200 ml 07/20/24 23:45 Fentanyl/Ropivacaine 2 Mcg/Ml And 0.1% 200 Ml Cadd Cassette EP DIRECTED [facility] Ringer's Solution 1,000 mls @ 125 mls/hr 07/20/24 08:00 07/20/24 18:22 IV 125 mls/hr INFUSION [facility] Administration Oxytocin/Sodium Chloride 30 unit in 500 mls @ 2 mls/hr 07/20/24 08:00 07/20/24 17:16 Pitocin/Normal Saline IV 8 milliunits/min INFUSION [facility] 8 mls/hr Titration Protocol 2 MILLIUNITS/MIN Naloxone HCl 2 mg/ Sodium 500 mls @ 7.853 mls/hr 07/21/24 00:46 Chloride IV INFUSION PRN Pruritis or Nausea/Vomiting 0.5 MCG/KG/HR Nalbuphine HCl 5 mg/ Sodium 50.5 mls @ 100 mls/hr 07/21/24 00:46 Chloride IVPB Q3H PRN PRN Pruritis IV Miscellaneous Supplies 1 each 07/19/24 19:15 Iv Access IV DIRECTED [facility] Misoprostol 25 mcg 07/19/24 20:00 07/20/24 04:30 Misoprostol 25 Mcg Tab PO 25 mcg Q4H [facility] Administration Naloxone HCl 0.04 mg 07/21/24 00:46 Naloxone 0.4 Mg/Ml Vial IVP PRN PRN Pruritis or Nausea/Vomiting Naloxone HCl 0 mg 07/21/24 00:46 Naloxone 0.4 Mg/Ml Vial IVP DIRECTED PRN Respiratory Depression/Arrest Ondansetron HCl 4 mg 07/20/24 20:56 07/20/24 21:08 Ondansetron 4 Mg/2 Ml Vial IVP 4 mg Q4H PRN PRN Administration Ondansetron HCl 4 mg 07/21/24 00:46 Ondansetron 4 Mg/2 Ml Vial IVP Q6H PRN PRN Nausea Sodium Chloride 0 ml 07/19/24 19:04 Normal Saline Flush 10 Ml Syr IVP PRN PRN Sodium Chloride 0 ml 07/19/24 20:00 Normal Saline Flush 10 Ml Syr IVP BID YESENIA Sodium Chloride 0 ml 07/19/24 19:04 Normal Saline 10 Ml Vial IJ DIRECTED PRN Terbutaline Sulfate 0.25 mg 07/19/24 19:04 Terbutaline 1 Mg/Ml Vial SC PRN PRN PFSH Active Problems Active Problems: Problem Status Onset Code Encounter for induction of labor Acute Z34.90 Preeclampsia Acute O14.90 Gestational hypertension Acute O13.9 Acute Z34.90 Tobacco Smoking/Tobacco Use Status: Never Passive smoking exposure: No Alcohol Alcohol Intake: never Substance Use Substance use type: does not use Prental History History 1 Para 0 Hx # Term Pregnancies Multiple births Hx # Pregnancies Ectopic pregnancies AB induced Hx Number of Living Children 0 AB spontaneous Vital Signs and Lab Results Vital Signs Most Recent Vital Signs in EMR: Most Recent Vital Signs Temp Pulse Resp BP Pulse Ox 36.6 C 84 18 129/66 99 07/20/24 22:00 07/21/24 00:48 07/20/24 22:00 07/21/24 00:46 07/21/24 00:48 Lab Results 07/20/24 08:10 07/19/24 19:13 Blood Type / Crossmatch: Antibody Screen NEGATIVE 07/19/24 Complete Blood Count: White Blood Count 12.88 10^3/uL (4.4-10.8) H 07/20/24 08:10 Red Blood Count 4.33 10^6/uL (3.93-5.22) 07/20/24 08:10 Hemoglobin 12.7 g/dL (11.2-15.7) 07/20/24 08:10 Hematocrit 37.6 % (36.0-46.0) 07/20/24 08:10 Platelet Count 254 10^3/uL (130-400) 07/20/24 08:10 Complete Metabolic Panel: Sodium 138 mmol/L (136-145) 07/19/24 19:13 Potassium 3.6 mmol/L (3.5-5.1) 07/19/24 19:13 Chloride 104 mmol/L (98-107) 07/19/24 19:13 Carbon Dioxide 20.1 mmol/L (21.0-32.0) L 07/19/24 19:13 BUN 18 mg/dL (7-18) 07/19/24 19:13 Creatinine 0.9 mg/dL (0.55-1.02) 07/19/24 19:13 Est GFR (CKD-EPI 2020) 86.57 (mL/min/1.73m2) 07/19/24 19:13 Calcium 9.1 mg/dL (8.5-10.1) 07/19/24 19:13 Albumin 2.6 g/dL (3.4-5.0) L 07/19/24 19:13 Glucose 135 mg/dL (74-106) H 07/19/24 19:13 Liver Function Panel: Alanine Aminotransferase (ALT/SGPT) 31 U/L (14-59) 07/19/24 19:13 Aspartate Amino Transf (AST/SGOT) 36 U/L (15-37) 07/19/24 19:13 Coagulation Panel: No Data to Display Cardiac Panel: No Data to Display Arterial Blood Gas: No Data to Display Venous Blood Gas: No Data to Display Pancreas Panel: No Data to Display Thyroid Panel: No Data to Display Infectious Disease: No Data to Display Blood Cultures: No Data to Display Toxicology Panel: No Data to Display Panel: No Data to Display Anesthesia Assessment and Plan Anesthesia History Personal History: No History of Anesthesia Complications Family History: No Family History of Anesthesia Complications Exercise Tolerance Exercise Tolerance: Metabolic Equivalents>4 Cardiac & Pulmonary Exam Cardiac Exam: Normal S1/S2 Heart Sounds Pulmonary Exam: Clear Bilateral Breath Sounds Implantable Cardiac Device Does patient have a Pacemaker or an ICD?: No Airway Exam Known Difficult Airway: No Mallampati Class: 2 Mouth Opening: Normal (> 3cm) Thyromental Distance: Greater than 3 cm Neck Range of Motion: Full ROM Neck Circumference: Normal Teeth Condition: Normal Dentition ASA Classification ASA Score: ASA 2 Emergency Case?: No NPO Status NPO Status: Full Stomach Status Status: Confirmed Anesthesia Plan Resuscitation Status: Full Code Anesthesia Technique: Labor Epidural Airway Planned: Natural Airway Monitors Used: Standard Monitors
[2024-07-21] MEDS: Oxytocin/Normal Saline 30 UNIT/500 ML BAG 334 UNITS IV (06:00)
--- NOTE | 2024-07-21 06:40 | W.OBDELIVERY ---
Date of service: 07/21/24 Time of Service: 06:40 OB Labor/ Delivery Information Baby A Delivery Delivery Method: Spontaneaous Presentation: Cephalic Vertex Position: Right Occipital Transverse Cord Description-Baby A: 3 Vessels and Nuchal Cord (x 2, reduced) Amniotic Fluid: Clear Estimated Blood Loss: 150 Delivery Outcome: Liveborn Note: Patient was admitted to the center at 37 weeks and 2 days for labor induction due to preeclampsia based on blood pressure and 24-hour urine. She intermittently had severe range blood pressures. She received misoprostol for cervical ripening and subsequent Pitocin augmentation of labor. She had artificial rupture of membranes for clear fluid progressed to being completely dilated in the vertex occiput anterior position. Patient did receive an epidural for pain control after using nitrous oxide. With excellent maternal effort, over the course of 1 hour, she pushed the vertex over an intact perineum. The head delivered in the right occiput anterior position and there was a nuchal cord which was loose, x 2, and reduced. Shoulders followed without difficulty. The baby was delivered to the mom's abdomen. There was delayed cord clamping. Cord blood sample was obtained. Delivery was a viable female with Apgars of 7 and 9. Weight to be determined. The placenta delivered spontaneously and was noted to be completely intact. On inspection of the cervix, vagina, and perineum there were bilateral labial lacerations at the superior aspect of the labia minora. The left was not hemostatic and was sutured with 3-0 Vicryl repeat in a running locked fashion. This was useful in achieving hemostasis. Both mom and baby are in stable condition bonding well in the recovery phase. Blood pressures will continue to be monitored closely in light of her hypertension and preeclampsia at the end of . All questions were answered. Debriefing opportunity was had with patient and her . Strong bonding is observed. Providers Doctor: Gladys Choi [employer] Technician: Yovany Davis Nurse: Daphne Robles Nurse: Ashanti Marcial Labor/Delivery Information Number of Babies in Womb: 1 Steroids Given: None Reason Steroids Not Administered: N/A Group Beta Strep: Negative Antibiotics Administered: No Rubella Status: Immune Blood Type: O+ Varicella Immunity: Immune Maternal Complications: None Shoulder Dystocia: No Stages of Labor Onset of Labor Date: 07/20/24 Onset of Labor Time: 17:30 Complete Dilatation Date: 07/21/24 Complete Dilatation Time: 04:22 Labor - Stage 1 Duration: 10 hours and 52 minutes ROM Baby A: 07/20/24 ROM Baby A: 20:07 ROM Total Time- Baby A: [id number] Delivery Date-Baby A: 07/21/24 Infant Delivery Time-Baby A: 05:53 Labor Stage 2 Duration: 1 hours and 31 minutes Placenta Delivery Date-Baby A: 07/21/24 Placenta Delivery Time-Baby A: 06:03 Labor-Stage 3 Duration: 10 minutes Total Length of Labor-Baby A: 12 hours and 23 minutes Placenta Cultured: No Placenta Status: Delivered Baby A Infant Gender: Female Gestational Status: Early Term (37-38.6 wks) Gestational Age in Weeks/Days: 37 Weeks and 3 Days Score-1 Minute Interval(Baby A) Heart Rate-1 minute: 100 BPM or Greater Respiratory Effort- 1 minute: Spontaneous/Strong Cry Muscle Tone-1 minute: Minimal Flexion/Extension Reflex Response-1 minute: Prompt Response Color-1 minute: Pallor or Cyanosis Total Score-1 minute: 7 Score-5 Minute Interval(Baby A) Heart Rate- 5 minute: 100 BPM or Greater Respiratory Effort-5 minute: Spontaneous/Strong Cry Muscle Tone-5 minute: Active Movement Reflex Response-5 minute: Prompt Response Color-5 minute: Bluish Hands or Feet Total Score- 5 minute: 9
[2024-07-21] MEDS: Labetalol 100 MG TAB 200 MG PO ×2 (09:31→20:01)
--- NOTE | 2024-07-21 13:13 | W.ANESPOSTOP ---
Postoperative Evaluation Date, Time and Location Date Performed: 07/21/24 Time Performed: 13:13 Patient Location: Obstetrics Vital Signs Most Recent Imported Vital Signs: Most Recent Vital Signs Temp Pulse Resp BP Pulse Ox 36.8 C 95 H 17 118/80 98 07/21/24 05:05 07/21/24 10:40 07/21/24 10:00 07/21/24 10:40 07/21/24 04:13 Pain Score Most Recent Pain Score: Most Recent Pain Score Pain Level 0 07/21/24 03:30 Assessment Mental Status: Awake (Alert & Oriented to Patient Baseline) Airway and Respiratory Function: Patent airway with normal (patient baseline) respiratory exam Cardiovascular Function: Hemodynamically Stable Hydration Status: Adequately Hydrated Nausea & Vomiting: No Nausea or Vomiting Pain: Pt. Denies Any Pain Peripheral Nerve Block: Patient did not receive a nerve block
[2024-07-21] MEDS: Ibuprofen 600 MG TAB PO (15:23)
[2024-07-21] MEDS: Dibucaine 1% 28 GM TUBE TP (20:19)
[2024-07-21] MEDS: Hamamelis Leaf/Glycerin 100 EACH BOX PR (20:20)
[2024-07-22] VITALS: BP 105/60; PULSE 81; RESP 16; TEMP 36.7; O2SAT 99
[2024-07-22 03:36] VITALS: BP 113/75; PULSE 75; RESP 17; O2SAT 97
[2024-07-22 08:05] VITALS: BP 113/83; PULSE 84; RESP 16; TEMP 36.8; O2SAT 98
[2024-07-22] MEDS: Labetalol 100 MG TAB 200 MG PO (09:05)
[2024-07-22 09:12] LABS: HCT 30.8 % (36.0-46.0); HGB 10.3 g/dL (11.2-15.7); MCH 29.6 pg (27.0-33.0); MCHC 33.4 % (32.0-36.0); MCV 89 fL (80-95); MPV 10.8 fL (8.0-11.0); Platelet Count 206 10^3/uL (130-400); RBC 3.48 10^6/uL (3.93-5.22); RDW 15.3 % (11.7-14.6); RDW-SD 50.2 fL; WBC 15.43 10^3/uL (4.4-10.8)
--- NOTE | 2024-07-22 10:11 | OBPPV_ITS ---
Date of service: 07/22/24 Time of Service: 10:11 Assessment and Plan Assessment and plan (1) Normal spontaneous vaginal delivery: Status: Acute Assessment and plan: day #1 status post vaginal after induction of labor at 37 weeks and 2 days. Preeclampsia. Blood pressures remain stable. Will continue labetalol, 100 mg twice daily. Discharge home today with short interval follow-up. All questions answered. (2) Preeclampsia: Status: Acute Qualifiers: Trimester: third trimester Qualified Code(s): O14.93 - Unspecified pre- eclampsia, third trimester Subjective Subjective Interval history: Patient seen and examined this morning. Somewhat poor sleep last night. Blood pressures are stable to low on 200 mg of labetalol twice daily. Will decrease her dose to 100 mg twice daily. My recommendation would be for short-term follow-up after discharge. She will be seen in the office in 24 hours post discharge from the hospital. She is working on breast-feeding. Baby is doing well. We discussed transition back to home. baby status: Doing well and Strong Bonding Observed Exam Physical Exam Vital signs: Temp Pulse Resp BP Pulse Ox 98.2 F 84 16 113/83 98 07/22/24 08:05 07/22/24 08:05 07/22/24 08:05 07/22/24 08:05 07/22/24 08:05 Vital Signs Reviewed: Yes Notable Details: Low normal blood pressure. Will decrease labetalol to 100 twice daily Constitutional Constitutional: no acute distress HEENT Exam HEENT Exam: Normal Neck Exam Neck Exam: Normal Respiratory Exam Respiratory Exam: Normal Cardiovascular Exam Cardiovascular Exam: Normal Abdominal Exam Comments: Soft, nontender Fundal Exam Fundus: Below Umbilicus and Firm Extremities Exam Extremity Exam: Normal and Edema (2+ bilateral); negative Calf Tenderness Skin Exam Skin Exam: Normal Neurological Exam Neurological Exam: Normal Psychiatric Exam Psychiatric Exam: Normal Results Hemoglobin/Hematocrit: Hgb 10.3 g/dL (11.2-15.7) L D 07/22/24 09:00 Hct 30.8 % (36.0-46.0) L 07/22/24 09:00 Abnormal Lab Findings: Abnormal Labs 07/19/24 07/20/24 07/22/24 19:13 08:10 09:00 WBC 13.63 H 12.88 H 15.43 H RBC 3.48 L Hgb 10.3 L D Hct 35.0 L 30.8 L RDW 14.7 H 15.3 H MPV 11.2 H Carbon Dioxide 20.1 L Anion Gap 13.9 H Glucose 135 H Alkaline Phosphatase 216 H Albumin 2.6 L
--- NOTE | 2024-07-22 10:17 | W.PM.OBDISCH ---
Date of service: 07/22/24 Time of Service: 10:18 DS: Diagnosis Discharge Diagnosis (1) Normal spontaneous vaginal delivery: Status: Acute Asessment and Plan: day 1 status postnormal spontaneous vaginal delivery after labor induction at 37 weeks due to preeclampsia. Doing well. Breast-feeding. Will continue, 100 mg twice daily. Short interval follow-up. All questions answered. (2) Preeclampsia: Status: Acute Discharge Plan Disposition Patient Disposition: Home Condition: Good Discharge Details Reason For Visit: IUP@ 37wld EGA, Pre-eclampsia Admit Date/Time: 07/19/24 19:04 Admit Provider: Selma Nix Attending Provider: Selma Nix Primary Care Provider: Unknown,Unknown Hospital Course Hospital Course: Patient was admitted to the center for cervical ripening and labor induction at 37 weeks and 3 days. She received misoprostol for cervical ripening, followed by Pitocin augmentation of her labor with artificial rupture of membranes. She did receive an epidural for pain control at her request. She went on to the point of delivery where she delivered a viable female weighing 6 pounds 4 ounces with Apgars of 7 and 9. At delivery there was a nuchal cord x 2 which was loose and easily reduced. Her course was uncomplicated. She was placed on labetalol, initially 200 mL twice daily decreased to 100 mg twice daily. She will be discharged home on this medication. She will also have prescription for ibuprofen and Colace sent to the pharmacy. She will be seen in short interval follow-up for blood pressure check in 24 hours in the office. She is undecided about contraception at this point. All questions were answered. Home Meds and New Rx's Prescriptions: New labetalol 100 mg tablet 100 mg PO BID Qty: 90 1RF docusate sodium [Colace] 100 mg capsule 100 mg PO BID Qty: 60 0RF ibuprofen 600 mg tablet 600 mg PO Q8H PRNQty: 60 1RF No Action ferrous sulfate 324 mg (65 mg iron) tablet,delayed release (DR/EC) 324 mg PO DAILY Qty: 90 3RF PNV no.[id number]-ldoa-[id number] 29-1 mg tablet 1 tab PO DAILY Qty: 90 3RF Discharge Instructions Stand Alone Forms: BC Instructions, BC Post Vaginal Deliver Activity:: Activity as Tolerated Equipment/Supplies:: No Equipment Needed Diet:: As Tolerated Discharge Orders Discharge Orders: Discharge Order (Routine); Ordered 07/22/24 Ordered By: Gladys Choi OB:DS Summary Summary Vaginal Delivery Method: Spontaneaous Episiotomy Description: None Laceration Description: Perineal Laceration Extension: First Degree Contraception Discussed Contraception Discussed: Yes Contraceptive Plan: Undecided, [place] Gender-Baby A: Female weight: 6 lb 4.884 oz Status at Discharge Functional status at discharge: independent ambulation Overall status at discharge: patient is progressing back to baseline Mental Status: mental status grossly normal Speech and Movement: speech and movement normal Mood: congruent mood Affect: normal affect Quality:SDOH Health Related Social Needs: No Data to Display Exam Physical Exam Vital signs: Temp Pulse Resp BP Pulse Ox 98.2 F 84 16 113/83 98 07/22/24 08:05 07/22/24 08:05 07/22/24 08:05 07/22/24 08:05 07/22/24 08:05 Constitutional Comments: See physical examination from progress note dated 07/22/2024. PFSH All Active Problems (Updated 07/22/24 @ 10:13 by Gladys Choi DO) Normal spontaneous vaginal delivery (Acute) Labor induction, vaginal , 07/21/2025. 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 Social History Smoking/Tobacco Use Status: Never Smoking risk assessment performed?: Yes Alcohol Intake: never Substance use type: does not use Housing: house Do you feel safe at home: Yes Do you feel safe in your relationship?: Yes History History 1 Para 0 Hx # Term Pregnancies Multiple births Hx # Pregnancies Ectopic pregnancies AB induced Hx Number of Living Children 0 AB spontaneous DS: Data Vitals/I&O Vitals and I&O: Vital Signs Temperature 98.2 F 07/22/24 08:05 Temperature Source Oral 07/22/24 08:05 Pulse 84 07/22/24 08:05 Pulse Rhythm Regular 07/22/24 08:05 Respiratory Rate 16 07/22/24 08:05 Blood Pressure 113/83 07/22/24 08:05 Blood Pressure Mean 93 07/22/24 08:05 Pulse Oximetry 98 07/22/24 08:05 Pain Level 6 07/21/24 15:23 Comment Taken with manual BP cuff, reported to 07/20/24 22:00 Intake & Output 07/21/24 07/21/24 07/22/24 11:59 23:59 11:59 Intake Total 1167 / 1167 Output Total 1100 / 3550 2450 / 3550 Balance 67 / -2383 -2450 / -2383 Weight 138 lb 8 oz Intake: IV 1167 / 1167 Output: Urine 1100 / 3550 2450 / 3550 Other: Urine Color Yellow Yellow Pale Urine Appearance Clear Data Completed and Pending Labs on day of discharge: Labs from last 24 hours 07/22/24 09:00 WBC 15.43 H RBC 3.48 L Hgb 10.3 L D Hct 30.8 L MCV 89 MCH 29.6 MCHC 33.4 RDW 15.3 H Plt Count 206 MPV 10.8
[2024-07-22 11:45] VITALS: BP 108/68; PULSE 78; RESP 16; TEMP 36.4; O2SAT 99
[2024-07-22 16:05] VITALS: BP 124/82; PULSE 74; RESP 15; TEMP 36.5; O2SAT 99
== END 2024-07-22 16:30 | disposition home or self-care (01) | DRG 807 ==
LOC: OBS 19:15 → BCD 07-21 09:48
PROVIDERS: Obstetrics & Gynecology; Admitting Provider Obstetrics & Gynecology Gynecology; Visit Provider Obstetrics & Gynecology Gynecology
DX: O14.94 Unspecified pre-eclampsia, complicating childbirth (principal); Z37.0 Single live birth; Z3A.37 37 weeks gestation of pregnancy; O70.0 First degree perineal laceration during delivery
CPT/HCPCS: 36415; 80053; 85027; 86850; 86900; 86901; 59200; J2405; J3490